=== PATIENT | male | born 1990 | race Caucasian/White ===

== ENCOUNTER 2019-07-02 12:07 | Emergency (ER) | payer OTHER ==
[~2019-07-02] VITALS: Ht 190.5 cm; Wt 104.3 kg
[2019-07-02] MEDS ORDERED: NABUMETONE 500500 M1 PO (12:49)
[2019-07-02] MEDS ORDERED: AUGMENTIN 875-1 EACH PO (12:56)
[2019-07-02 13:21] VITALS: BP 130/86
== END 2019-07-02 13:22 | disposition home or self-care (01) ==
LOC: ER 12:07
DX: S51.831A Puncture wound without foreign body of right forearm, initial encounter (principal); Z88.0 Allergy status to penicillin; W54.0XXA Bitten by dog, initial encounter; Y93.89 Activity, other specified; Y92.89 Other specified places as the place of occurrence of the external cause; Y99.9 Unspecified external cause status